=== PATIENT | female | born 1985 | race African-American/Black ===

== ENCOUNTER 2021-03-14 08:00 | Outpatient (CLI) | payer OTHER | END 2021-03-14 08:30 | disposition home or self-care (01) | LOC: PPH VACUNA 08:00 | PROVIDERS: ATTEND Emergency Medicine Pediatric Emergency Medicine | DX: Z23 Encounter for immunization (principal) ==

== ENCOUNTER 2021-05-30 09:10 | Emergency (ER) | payer BC, OTHER ==
[~2021-05-30] VITALS: Ht 160 cm; Wt 63.5 kg
== END 2021-05-30 16:24 | disposition home or self-care (01) ==
LOC: ER 09:10
DX: M79.604 Pain in right leg (principal); I80.251 Phlebitis and thrombophlebitis of right calf muscular vein

== ENCOUNTER 2021-06-13 08:44 | Outpatient (CLI) | payer OTHER | END 2021-06-13 08:45 | disposition home or self-care (01) | LOC: NUCLEAR 08:44 | PROVIDERS: ATTEND Internal Medicine | DX: I82.402 Acute embolism and thrombosis of unspecified deep veins of left lower extremity (principal) ==

== ENCOUNTER 2021-07-31 13:31 | Emergency (ER) | payer OTHER, BC ==
[~2021-07-31] VITALS: Ht 160 cm; Wt 62.1 kg
== END 2021-07-31 17:28 | disposition home or self-care (01) ==
LOC: ER 13:31
DX: K52.9 Noninfective gastroenteritis and colitis, unspecified (principal)

== ENCOUNTER 2022-02-11 14:37 | Outpatient (CLI) | payer BC | END 2022-02-11 14:38 | disposition home or self-care (01) | LOC: RAD 14:37 | DX: M25.572 Pain in left ankle and joints of left foot (principal); M77.32 Calcaneal spur, left foot ==

== ENCOUNTER 2023-02-24 09:11 | Outpatient (CLI) | payer OTHER | END 2023-02-24 09:19 | disposition home or self-care (01) | LOC: RX STUDY 09:11 | PROVIDERS: ATTEND Obstetrics & Gynecology Reproductive Endocrinology | DX: N93.0 Postcoital and contact bleeding (principal) ==